=== PATIENT | female | born 1990 | race Caucasian/White ===

== ENCOUNTER 2021-04-11 04:30 | Inpatient (IN) | payer OTHER ==
[~2021-04-11] VITALS: Ht 170.2 cm; Wt 65.5 kg
[2021-04-11] MEDS ORDERED: PROMETHAZINE 25 MG/ML, 1ML ONE (06:48)
[2021-04-11] MEDS ORDERED: MEPERIDINE/PF 50 MG/ML ONE (06:48)
[2021-04-11] MEDS ORDERED: MEPERIDINE/PF 25MG/0.5ML IM ONE (07:00)
[2021-04-11] MEDS ORDERED: PROMETHAZINE 25 MG/ML, 1ML IM ONE (07:00)
[2021-04-11] MEDS ORDERED: TERBUTALINE 1 MG/ML, 1ML SQ PRN (09:30)
[2021-04-11] MEDS ORDERED: CALCIUM CARBONATE 500 MG TAB.CHEW PO PRN (09:30)
[2021-04-11] MEDS ORDERED: PENICILLIN GK 5,000,000 UNITS in DEXTROSE 5% 100 ML IVPB ONE (09:30)
[2021-04-11] MEDS ORDERED: LACTATED RINGERS 1,000 ML IVBOLUS ONE (09:30)
[2021-04-11] MEDS ORDERED: FENTANYL PF 100 MCG/2ML IV PRN (09:30)
[2021-04-11] MEDS ORDERED: FENTANYL PF 100 MCG/2ML IVPush PRN (09:30)
[2021-04-11] MEDS ORDERED: ONDANSETRON 2MG/ML, 2ML IVPush PRN ×2 (09:30→11:00)
[2021-04-11] MEDS ORDERED: OXYTOCIN 30U/ 0.9% NaCL 500ML 500 ML IV ONE (09:30)
[2021-04-11] MEDS ORDERED: OXYTOCIN 30U/ 0.9% NaCL 500ML 500 ML IV PRN ×2 (09:30)
[2021-04-11] MEDS ORDERED: TERBUTALINE 1 MG/ML, 1ML IVPush PRN (09:30)
[2021-04-11] MEDS ORDERED: LIDOCAINE 1%, 20ML ONE (09:36)
[2021-04-11] MEDS ORDERED: MISOPROSTOL 200 MCG TABLET ONE (09:36)
[2021-04-11] MEDS ORDERED: NEWBORN KIT ONE (09:36)
[2021-04-11 09:52] LABS: BASOPHILS % (AUTO) 1 % (0-1); EOSINOPHILS % (AUTO) 0 % (1-7); LYMPHOCYTES % (AUTO) 10 % (22-44); MEAN CORPUSCULAR HEMOGLOBIN 31.8 pg (27.0-34.8); MEAN CORPUSCULAR HGB CONC 34.8 g/dL (32.4-35.8); MEAN PLATELET VOLUME 6.3 fL (7.4-10.4); MONOCYTES % (AUTO) 5 % (2-9); NEUTROPHILS % (AUTO) 85 % (42-75); PLATELET COUNT 275 x10^3/uL (130-400); RED BLOOD COUNT 4.14 x10^6/uL (3.82-5.3); RED CELL DISTRIBUTION WIDTH 15.2 % (9.6-15.2)
[2021-04-11] MEDS ORDERED: FENTANYL/BUPIV./NS/PF 250 ML EPIDCONT ONE (10:31)
[2021-04-11] MEDS ORDERED: BUPIVACAINE 0.25% ONE (10:31)
[2021-04-11] MEDS: LACTATED RINGERS 1,000 ML IV SCH ×2 (10:35→13:30)
[2021-04-11] MEDS ORDERED: NALOXONE 0.4 MG/ML, 1ML IVPush PRN (11:00)
[2021-04-11] MEDS ORDERED: LACTATED RINGERS 1,000 ML IVBOLUS PRN (11:00)
[2021-04-11] MEDS ORDERED: EPHEDRINE 50 MG/ML, 1ML IVPush PRN (11:00)
[2021-04-11] MEDS ORDERED: DIPHENHYDRAMINE 50 MG/ML, 1ML IVPush PRN (11:00)
[2021-04-11] MEDS ORDERED: LACTATED RINGERS 1,000 ML IV SCH (11:00)
[2021-04-11] MEDS ORDERED: FENTANYL/BUPIV./NS/PF 250 ML EPIDCONT SCH (11:00)
[2021-04-11] MEDS ORDERED: PENICILLIN GK 2,500,000 UNITS in DEXTROSE 5% 100 ML IVPB SCH (13:30)
[2021-04-11] MEDS ORDERED: BISACODYL 10 MG SUPP PR PRN (20:30)
[2021-04-11] MEDS ORDERED: RHOGAM FROM BLOOD BANK 1 NOTE EA IM/IV ONE (20:30)
[2021-04-11] MEDS ORDERED: IBUPROFEN 800 MG TABLET PO PRN (20:30)
[2021-04-11] MEDS ORDERED: OXYcodone/APAP 5/325MG TABLET PO PRN (20:30)
[2021-04-11] MEDS ORDERED: HYDROcodone/APAP 5/325 TABLET PO PRN (20:30)
[2021-04-11] MEDS ORDERED: MISOPROSTOL 200 MCG TABLET PR PRN (20:30)
[2021-04-11] MEDS ORDERED: ACETAMINOPHEN 325 MG TABLET PO PRN (20:30)
[2021-04-11] MEDS ORDERED: ONDANSETRON 2MG/ML, 2ML IV PRN (20:30)
[2021-04-11] MEDS: OXYTOCIN 30U/ 0.9% NaCL 500ML 500 ML IV SCH (20:35)
[2021-04-11 22:12] VITALS: BP 119/75
[2021-04-11] MEDS ORDERED: IBUPROFEN 600 MG TABLET ONE (23:41)
[2021-04-12 00:30] VITALS: BP 112/70
[2021-04-12] MEDS: OXYTOCIN 30U/ 0.9% NaCL 500ML 500 ML IV SCH ×2 (02:20→16:30)
[2021-04-12 05:41] VITALS: BP 89/65
[2021-04-12 06:11] LABS: BASOPHILS % (AUTO) 0 % (0-1); EOSINOPHILS % (AUTO) 0 % (1-7); LYMPHOCYTES % (AUTO) 13 % (22-44); MEAN CORPUSCULAR HEMOGLOBIN 32.1 pg (27.0-34.8); MEAN CORPUSCULAR HGB CONC 35.1 g/dL (32.4-35.8); MEAN PLATELET VOLUME 6.3 fL (7.4-10.4); MONOCYTES % (AUTO) 9 % (2-9); NEUTROPHILS % (AUTO) 77 % (42-75); PLATELET COUNT 199 x10^3/uL (130-400); RED BLOOD COUNT 3.34 x10^6/uL (3.82-5.3); RED CELL DISTRIBUTION WIDTH 15.4 % (9.6-15.2)
[2021-04-12 07:27] VITALS: BP 104/55
[2021-04-12] MEDS: PRENATAL VIT/IRON/FA 1 EACH TABLET PO SCH (08:27)
[2021-04-12] MEDS: DOCUSATE 100 MG CAPSULE PO PRN (08:27)
[2021-04-12] MEDS: IBUPROFEN 600 MG TABLET PO PRN ×2 (08:28→16:55)
[2021-04-12 12:13] VITALS: BP 99/64
[2021-04-12 16:00] VITALS: BP 102/67
[2021-04-12 21:00] VITALS: BP 104/65
[2021-04-13] MEDS: IBUPROFEN 600 MG TABLET PO PRN ×2 (06:33→14:31)
[2021-04-13] MEDS ORDERED: IBUP-1222 PO (06:48)
[2021-04-13 08:05] VITALS: BP 105/70
[2021-04-13] MEDS: DOCUSATE 100 MG CAPSULE PO PRN (09:15)
[2021-04-13] MEDS: PRENATAL VIT/IRON/FA 1 EACH TABLET PO SCH (09:15)
[2021-04-13] MEDS ORDERED: [UNRECOGNIZED DRUG - CODE] PO (14:45)
== END 2021-04-13 15:40 | disposition home or self-care (01) | DRG 807 ==
LOC: LDOP 04:30 → LDIP 07:05 → INTOOBSV 07:05 → OBSVTOIN 09:14 → 2NW 19:41
PROVIDERS: ADMIT Obstetrics & Gynecology Maternal & Fetal Medicine; ATTEND Obstetrics & Gynecology Maternal & Fetal Medicine
PROC: 10E0XZZ Delivery of Products of Conception, External Approach (ICD-10-PCS; principal; 2021-04-11)
PROC: 0KQM0ZZ Repair Perineum Muscle, Open Approach (ICD-10-PCS; 2021-04-11)
PROC: 3E0R3BZ Introduction of Anesthetic Agent into Spinal Canal, Percutaneous Approach (ICD-10-PCS; 2021-04-11)
PROC: 00HU33Z Insertion of Infusion Device into Spinal Canal, Percutaneous Approach (ICD-10-PCS; 2021-04-11)
DX: O99.824 Streptococcus B carrier state complicating childbirth (principal); Z37.0 Single live birth; Z3A.40 40 weeks gestation of pregnancy; O69.81X0 Labor and delivery complicated by cord around neck, without compression, not applicable or unspecified; O26.893 Other specified pregnancy related conditions, third trimester; Z67.11 Type A blood, Rh negative; Z20.822 Contact with and (suspected) exposure to COVID-19; O70.1 Second degree perineal laceration during delivery
CPT/HCPCS: 36415; 85025; 86592; 86850; 86900; 87635; G0378; J2175; J2540; J2550; J2590; J3010; J7120